=== PATIENT | male | born 1965 | race Caucasian/White ===

== ENCOUNTER 2017-04-04 14:26 | Emergency (ER) | payer BC ==
[~2017-04-04] VITALS: Ht 185.4 cm; Wt 93.9 kg
[2017-04-04 14:37] VITALS: BP 146/84
== END 2017-04-04 16:00 | disposition left against medical advice (07) ==
LOC: ER 14:52
DX: M54.9 Dorsalgia, unspecified (principal); Z53.21 Procedure and treatment not carried out due to patient leaving prior to being seen by health care provider
CPT/HCPCS: 93005